=== PATIENT | female | born 1960 | race Caucasian/White ===

== ENCOUNTER 2024-02-22 12:25 | Inpatient (IN) | payer MEDICARE, OTHER ==
[~2024-02-22] VITALS: Ht 160 cm; Wt 115.2 kg
[2024-02-22 15:45] VITALS: BP 130/84
[2024-02-22] MEDS ORDERED: Docusate Sodium 100 MG CAP PO PRN (15:45)
[2024-02-22] MEDS ORDERED: Polyethylene Glycol 3350 Powder 17 GM PACKET PO PRN (15:45)
[2024-02-22] MEDS ORDERED: Bisacodyl 5 MG TAB PO PRN (15:45)
[2024-02-22 16:10] LABS: BASO # 0.03 K/mm3 (0.02-0.10); EOS # 0.25 K/mm3 (0.04-0.40); EOS % 2.5 % (1.0-5.0); HEMATOCRIT 27.2 % (37.0-47.0); HEMOGLOBIN 7.7 g/dL (12.5-16.0); MEAN CELL VOLUME 83 fl (78-100); MEAN CORPUSCULAR HEMOGLOBIN 24 pg (27-31); MEAN CORPUSCULAR HGB CONC 28 g/dL (33-37); MEAN PLATELET VOLUME 9.8 fl (7.4-10.4); MONO # 1.02 K/mm3 (0.20-0.80); NEU # 7.92 K/mm3 (1.40-6.50); PLATELET COUNT 336 K/mm3 (130-400); RED BLOOD COUNT 3.26 M/mm3 (4.10-5.30); RED CELL DISTRIBUTION WIDTH 20.8 % (11.5-14.5); WHITE BLOOD COUNT 10.2 K/mm3 (4.8-10.8)
[2024-02-22 16:16] LABS: ALBUMIN 3.6 g/dL (3.4-4.8)
[2024-02-22 16:21] LABS: TOTAL BILIRUBIN 1.1 mg/dL (0.2-1.2)
[2024-02-22] MEDS ORDERED: MORGIDOX 1X100100 MG PO (16:43)
[2024-02-22] MEDS ORDERED: TORSEMIDE10 M1 PO (16:44)
[2024-02-22] MEDS ORDERED: TRAMADOL 50 MG TAB PO (16:45)
[2024-02-22] MEDS ORDERED: LEVOTHYROXIN0.025 MG PO (16:46)
[2024-02-22] MEDS ORDERED: BASAGLAR K100 UNIT/1 SQ (16:47)
[2024-02-22] MEDS ORDERED: NOVOLOG FLEX100 U/ML SQ (16:50)
[2024-02-22] MEDS ORDERED: QUALITY CHOICE325 MG PO (16:52)
[2024-02-22] MEDS ORDERED: AMIODARONE200 MG PO (16:54)
[2024-02-22] MEDS ORDERED: GOOD NEIGHBOR500 M2 (16:54)
[2024-02-22] MEDS ORDERED: CHILDREN'S ZYRT10 M1 PO (16:56)
[2024-02-22] MEDS ORDERED: VITAJOY DAILY25 MCG (16:58)
[2024-02-22 17:00] VITALS: BP 127/60
[2024-02-22] MEDS ORDERED: Acetaminophen 500 MG TAB PO PRN (17:45)
[2024-02-22] MEDS ORDERED: ATORVASTATIN CA80 MG PO (17:48)
[2024-02-22] MEDS ORDERED: Insulin Aspart (NovoLOG) SQ SCH (17:49)
[2024-02-22] MEDS ORDERED: Dextrose (Glucose) 15 GM (4 x 3.75 GM) Chewable TAB PACK PO PRN (18:00)
[2024-02-22] MEDS ORDERED: traMADol 50 MG TAB PO PRN (18:00)
[2024-02-22] MEDS ORDERED: Glucagon 1 MG VIAL IM PRN (18:00)
[2024-02-22] MEDS ORDERED: Dextrose 50% Water 25 GM/50 ML SYRINGE IV PRN (18:00)
[2024-02-22] MEDS ORDERED: Doxycycline Monohydrate 100 MG CAP PO SCH (19:00)
[2024-02-23 06:09] VITALS: BP 142/72
[2024-02-23] MEDS ORDERED: Ferrous Sulfate 325 MG TAB PO SCH (08:00)
[2024-02-23] MEDS ORDERED: Insulin Aspart (NovoLOG) SQ SCH (08:00)
[2024-02-23] MEDS ORDERED: Amiodarone 200 MG TAB PO SCH (09:00)
[2024-02-23] MEDS ORDERED: Torsemide 20 MG TAB PO SCH (09:00)
[2024-02-23] MEDS ORDERED: Cetirizine 10 MG TAB PO SCH (09:00)
[2024-02-23 18:00] VITALS: BP 106/65
[2024-02-23 20:53] LABS: HEMATOCRIT 25.2 % (37.0-47.0); HEMOGLOBIN 7.2 g/dL (12.5-16.0)
[2024-02-24 06:19] VITALS: BP 112/57
[2024-02-24 14:29] LABS: HEMATOCRIT 26.8 % (37.0-47.0); HEMOGLOBIN 7.5 g/dL (12.5-16.0)
[2024-02-24 18:05] VITALS: BP 121/71
[2024-02-25 06:11] VITALS: BP 124/67
[2024-02-25 08:58] LABS: HEMOGLOBIN 7.6 g/dL (12.5-16.0)
[2024-02-25 16:58] VITALS: BP 103/64
[2024-02-26 05:51] VITALS: BP 111/57
[2024-02-26 05:56] LABS: HEMATOCRIT 25.5 % (37.0-47.0); HEMOGLOBIN 7.1 g/dL (12.5-16.0)
[2024-02-26] MEDS ORDERED: Cholecalciferol (Vit D3) 25 MCG (1,000 Units) TAB PO SCH (09:00)
[2024-02-26 18:00] VITALS: BP 121/39
[2024-02-27 05:45] VITALS: BP 129/67
[2024-02-27 06:09] LABS: BASO # 0.02 K/mm3 (0.02-0.10); EOS # 0.27 K/mm3 (0.04-0.40); EOS % 3.6 % (1.0-5.0); HEMATOCRIT 24.2 % (37.0-47.0); LYMPH# 1.12 K/mm3 (1.50-4.00); MEAN CELL VOLUME 83 fl (78-100); MEAN CORPUSCULAR HEMOGLOBIN 24 pg (27-31); MEAN CORPUSCULAR HGB CONC 29 g/dL (33-37); MEAN PLATELET VOLUME 9.8 fl (7.4-10.4); MONO # 0.65 K/mm3 (0.20-0.80); NEU # 5.52 K/mm3 (1.40-6.50); PLATELET COUNT 306 K/mm3 (130-400); RED BLOOD COUNT 2.93 M/mm3 (4.10-5.30); RED CELL DISTRIBUTION WIDTH 20.7 % (11.5-14.5); WHITE BLOOD COUNT 7.6 K/mm3 (4.8-10.8)
[2024-02-27 06:16] LABS: HEMOGLOBIN 6.9 g/dL (12.5-16.0)
[2024-02-27 06:17] LABS: ALBUMIN 3.3 g/dL (3.4-4.8)
[2024-02-27 06:19] LABS: CALCIUM 8.9 mg/dL (8.3-10.5)
[2024-02-27 06:20] LABS: TOTAL PROTEIN 6.6 g/dL (6.2-8.1)
[2024-02-27 06:22] LABS: TOTAL BILIRUBIN 0.8 mg/dL (0.2-1.2)
[2024-02-27] MEDS ORDERED: Lidocaine 4% Topical Patch TP SCH (10:12)
[2024-02-27] MEDS ORDERED: Pregabalin 25 MG CAP PO SCH (12:00)
[2024-02-27 17:42] VITALS: BP 145/71
[2024-02-28 05:38] VITALS: BP 133/72
[2024-02-28 05:39] LABS: BASO # 0.02 K/mm3 (0.02-0.10); EOS # 0.29 K/mm3 (0.04-0.40); EOS % 3.6 % (1.0-5.0); HEMATOCRIT 29.1 % (37.0-47.0); HEMOGLOBIN 8.7 g/dL (12.5-16.0); LYMPH# 1.11 K/mm3 (1.50-4.00); MEAN CELL VOLUME 82 fl (78-100); MEAN CORPUSCULAR HEMOGLOBIN 25 pg (27-31); MEAN CORPUSCULAR HGB CONC 30 g/dL (33-37); MEAN PLATELET VOLUME 10.2 fl (7.4-10.4); MONO # 0.76 K/mm3 (0.20-0.80); NEU # 5.77 K/mm3 (1.40-6.50); PLATELET COUNT 305 K/mm3 (130-400); RED BLOOD COUNT 3.53 M/mm3 (4.10-5.30); RED CELL DISTRIBUTION WIDTH 19.7 % (11.5-14.5)
[2024-02-28] MEDS ORDERED: Furosemide 40 MG TAB PO ONE (11:00)
[2024-02-28 17:10] VITALS: BP 131/79
[2024-02-29 05:10] VITALS: BP 128/66
[2024-02-29 06:44] LABS: BASO # 0.03 K/mm3 (0.02-0.10); EOS # 0.29 K/mm3 (0.04-0.40); EOS % 3.8 % (1.0-5.0); HEMATOCRIT 30.1 % (37.0-47.0); HEMOGLOBIN 8.9 g/dL (12.5-16.0); LYMPH# 1.26 K/mm3 (1.50-4.00); MEAN CELL VOLUME 84 fl (78-100); MEAN CORPUSCULAR HEMOGLOBIN 25 pg (27-31); MEAN CORPUSCULAR HGB CONC 30 g/dL (33-37); MEAN PLATELET VOLUME 9.8 fl (7.4-10.4); MONO # 0.66 K/mm3 (0.20-0.80); PLATELET COUNT 311 K/mm3 (130-400); RED CELL DISTRIBUTION WIDTH 20.2 % (11.5-14.5); WHITE BLOOD COUNT 7.6 K/mm3 (4.8-10.8)
[2024-02-29 07:06] LABS: CALCIUM 9.3 mg/dL (8.3-10.5)
[2024-02-29 07:12] LABS: MAGNESIUM 1.58 mg/dL (1.60-2.60)
[2024-02-29] MEDS ORDERED: Magnesium Oxide 400 MG TAB PO SCH (08:00)
[2024-02-29] MEDS ORDERED: tiZANidine 4 MG TABLET PO PRN (08:30)
[2024-02-29 17:05] VITALS: BP 135/79
[2024-03-01 06:04] VITALS: BP 123/66
[2024-03-01 07:30] LABS: BASO # 0.03 K/mm3 (0.02-0.10); EOS # 0.27 K/mm3 (0.04-0.40); HEMATOCRIT 30.4 % (37.0-47.0); HEMOGLOBIN 8.8 g/dL (12.5-16.0); LYMPH# 1.27 K/mm3 (1.50-4.00); MEAN CELL VOLUME 85 fl (78-100); MEAN CORPUSCULAR HEMOGLOBIN 25 pg (27-31); MEAN CORPUSCULAR HGB CONC 29 g/dL (33-37); MEAN PLATELET VOLUME 9.7 fl (7.4-10.4); MONO # 0.62 K/mm3 (0.20-0.80); NEU # 4.53 K/mm3 (1.40-6.50); PLATELET COUNT 300 K/mm3 (130-400); RED BLOOD COUNT 3.56 M/mm3 (4.10-5.30); RED CELL DISTRIBUTION WIDTH 20.5 % (11.5-14.5); WHITE BLOOD COUNT 6.7 K/mm3 (4.8-10.8)
[2024-03-01 17:06] VITALS: BP 147/76
[2024-03-02 05:57] VITALS: BP 112/64
[2024-03-02 07:22] LABS: BASO # 0.02 K/mm3 (0.02-0.10); EOS # 0.26 K/mm3 (0.04-0.40); EOS % 3.8 % (1.0-5.0); HEMOGLOBIN 8.8 g/dL (12.5-16.0); MEAN CELL VOLUME 87 fl (78-100); MEAN CORPUSCULAR HEMOGLOBIN 25 pg (27-31); MEAN CORPUSCULAR HGB CONC 29 g/dL (33-37); MEAN PLATELET VOLUME 9.9 fl (7.4-10.4); MONO # 0.54 K/mm3 (0.20-0.80); NEU # 4.83 K/mm3 (1.40-6.50); PLATELET COUNT 296 K/mm3 (130-400); RED BLOOD COUNT 3.47 M/mm3 (4.10-5.30); RED CELL DISTRIBUTION WIDTH 20.7 % (11.5-14.5); WHITE BLOOD COUNT 6.9 K/mm3 (4.8-10.8)
[2024-03-02 08:50] LABS: CALCIUM 9.4 mg/dL (8.3-10.5)
[2024-03-02 17:37] VITALS: BP 123/50
[2024-03-03 05:05] VITALS: BP 131/69
[2024-03-03 17:10] VITALS: BP 129/48
[2024-03-04 05:23] VITALS: BP 124/70
[2024-03-04 17:03] VITALS: BP 133/85
[2024-03-05 05:40] VITALS: BP 142/91
[2024-03-05 07:13] LABS: CALCIUM 9.5 mg/dL (8.3-10.5)
[2024-03-05 07:14] LABS: ALBUMIN 3.7 g/dL (3.4-4.8)
[2024-03-05 07:15] LABS: TOTAL PROTEIN 7.3 g/dL (6.2-8.1)
[2024-03-05 07:21] LABS: MAGNESIUM 2.03 mg/dL (1.60-2.60)
[2024-03-05] MEDS ORDERED: Insulin Lispro (HumaLOG) SQ SCH (12:00)
[2024-03-05 17:26] VITALS: BP 140/74
[2024-03-05] MEDS ORDERED: Insulin Glargine-ygfn (Lantus) SQ SCH (21:00)
[2024-03-05] MEDS ORDERED: Atorvastatin 80 MG TAB PO SCH (21:00)
[2024-03-06 05:57] VITALS: BP 134/64
[2024-03-06 18:01] VITALS: BP 147/75
[2024-03-06 19:30] VITALS: BP 131/78
[2024-03-07 07:53] VITALS: BP 132/75
[2024-03-07 19:49] VITALS: BP 139/69
[2024-03-08 07:05] VITALS: BP 150/74
[2024-03-08 19:27] VITALS: BP 136/56
[2024-03-09 07:10] VITALS: BP 96/44
[2024-03-09 19:56] VITALS: BP 127/81
[2024-03-10 08:26] VITALS: BP 143/75
[2024-03-10 19:00] VITALS: BP 135/62
[2024-03-11 07:15] VITALS: BP 145/70
[2024-03-11 19:23] VITALS: BP 151/67
[2024-03-12 07:00] VITALS: BP 126/47
[2024-03-12 07:04] LABS: BASO # 0.02 K/mm3 (0.02-0.10); EOS % 2.8 % (1.0-5.0); HEMATOCRIT 34.7 % (37.0-47.0); HEMOGLOBIN 10.3 g/dL (12.5-16.0); LYMPH# 1.13 K/mm3 (1.50-4.00); MEAN CELL VOLUME 89 fl (78-100); MEAN CORPUSCULAR HEMOGLOBIN 26 pg (27-31); MEAN CORPUSCULAR HGB CONC 30 g/dL (33-37); MEAN PLATELET VOLUME 9.8 fl (7.4-10.4); NEU # 5.28 K/mm3 (1.40-6.50); PLATELET COUNT 289 K/mm3 (130-400); RED CELL DISTRIBUTION WIDTH 23.1 % (11.5-14.5); WHITE BLOOD COUNT 7.2 K/mm3 (4.8-10.8)
[2024-03-12 07:07] LABS: RED BLOOD COUNT 3.91 M/mm3 (4.10-5.30)
[2024-03-12 07:20] LABS: ALBUMIN 3.9 g/dL (3.4-4.8)
[2024-03-12 07:22] LABS: CALCIUM 9.9 mg/dL (8.3-10.5)
[2024-03-12 07:23] LABS: TOTAL PROTEIN 7.7 g/dL (6.2-8.1)
[2024-03-12 07:25] LABS: TOTAL BILIRUBIN 0.8 mg/dL (0.2-1.2)
[2024-03-12 19:20] VITALS: BP 152/71
[2024-03-13 07:00] VITALS: BP 126/74
[2024-03-13 19:00] VITALS: BP 127/79
[2024-03-14 07:42] VITALS: BP 120/72
[2024-03-14] MEDS ORDERED: ROPINIROLE HY0.25 MG PO (08:34)
[2024-03-14] MEDS ORDERED: MAGNESIUM OXID400 MG PO (08:38)
[2024-03-14] MEDS ORDERED: DOCUSATE SOD100 MG PO (08:39)
[2024-03-14] MEDS ORDERED: PANTOPRAZOLE SO40 MG PO (08:40)
[2024-03-14] MEDS ORDERED: FERROUS SU325 MG/TAB PO (08:43)
== END 2024-03-14 13:00 | disposition home or self-care (01) | DRG 663 ==
LOC: MED/SURG 12:25
PROVIDERS: ADMIT Family Medicine
DX: D50.9 Iron deficiency anemia, unspecified (principal); N17.9 Acute kidney failure, unspecified; E11.22 Type 2 diabetes mellitus with diabetic chronic kidney disease; I48.0 Paroxysmal atrial fibrillation; N18.30 Chronic kidney disease, stage 3 unspecified; I12.9 Hypertensive chronic kidney disease with stage 1 through stage 4 chronic kidney disease, or unspecified chronic kidney disease; E03.9 Hypothyroidism, unspecified; R53.81 Other malaise; G89.29 Other chronic pain; M54.50 Low back pain, unspecified; E66.01 Morbid (severe) obesity due to excess calories; Z79.01 Long term (current) use of anticoagulants; Z79.4 Long term (current) use of insulin
CPT/HCPCS: A6240; A9270; J1815